=== PATIENT | male | born 1985 | race Caucasian/White ===

== ENCOUNTER 2018-11-04 19:55 | Emergency (ER) | payer OTHER ==
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
[2018-11-04 22:07] VITALS: BP 106/77; PULSE 16; TEMP 99; BMI 25.8
== END 2018-11-04 20:45 | disposition home or self-care (01) ==
LOC: JERFT 19:55
DX: S16.1XXA Strain of muscle, fascia and tendon at neck level, initial encounter (principal); X58.XXXA Exposure to other specified factors, initial encounter; Y93.89 Activity, other specified; Y92.89 Other specified places as the place of occurrence of the external cause
CPT/HCPCS: 99282-25

== ENCOUNTER 2021-03-12 13:59 | Emergency (ER) | payer OTHER ==
[2021-03-12 14:14] VITALS: BP 120/77; PULSE 96; BMI 22.9
[2021-03-12 14:32] VITALS: TEMP 97.9
[2021-03-12] MEDS ORDERED: NAPROXEN 500 MG TABLET PO ONE (14:50)
[2021-03-12] MEDS ORDERED: METHOCARBAMOL 500 MG TABLET PO ONE (14:50)
[2021-03-12] MEDS ORDERED: NAPROXEN 500 MG TABLET ONE (14:51)
[2021-03-12] MEDS ORDERED: METHOCARBAMOL 500 MG TABLET ONE (14:51)
== END 2021-03-12 14:57 | disposition home or self-care (01) ==
LOC: JERFT 13:59
DX: S39.012A Strain of muscle, fascia and tendon of lower back, initial encounter (principal); X50.0XXA Overexertion from strenuous movement or load, initial encounter
CPT/HCPCS: 99283-25

== ENCOUNTER 2022-05-17 14:51 | Emergency (ER) | payer OTHER ==
[2022-05-17 15:10] VITALS: BP 149/82; PULSE 75; RESP 20; TEMP 98.1; BMI 23.6
[2022-05-17] MEDS ORDERED: KETOROLAC TROMETHAMINE 30 MG/1 ML VIAL IM ONE (16:12)
[2022-05-17] MEDS ORDERED: KETOROLAC TROMETHAMINE 30 MG/1 ML VIAL ONE (16:35)
== END 2022-05-17 19:15 | disposition home or self-care (01) ==
LOC: JERFT 14:51
PROC: 3E023GC Introduction of Other Therapeutic Substance into Muscle, Percutaneous Approach (ICD-10-PCS; principal; 2022-05-17)
DX: M54.2 Cervicalgia (principal)
CPT/HCPCS: 72050-TC-FY; 72125-TC; 99284-25